=== PATIENT | male | born 1985 | race Asian ===

== ENCOUNTER → 2025-06-27 | Outpatient (CLI) | payer OTHER, SELFPAY ==
--- NOTE | 2025-06-27 | XR_ITS ---
Examination: PA lateral chest 2 views TECHNIQUE: Upright PA lateral chest 2 views Date and time: June 27, 2025, 12:41 PM, comparison June 25, 2018 INDICATIONS: Chest pain short of breath beginning 8 months ago. FINDINGS: Normal heart size Lungs are clear. The osseous structures are intact. IMPRESSION: No active disease.
== END | disposition home or self-care (01) ==
PROVIDERS: PCP Nurse Practitioner Family; Referring Provider Nurse Practitioner Family; Visit Provider Nurse Practitioner Family
DX: J45.998 Other asthma (principal)
CPT/HCPCS: 71046